=== PATIENT | male | born 1980 | race Caucasian/White ===

== ENCOUNTER → 2020-03-05 | Outpatient (CLI) | payer BC ==
--- NOTE | 2020-03-07 19:07 | CT ---
EXAMINATION TYPE: CT abdomen pelvis w con DATE OF EXAM: 03/05/2020 COMPARISON: NONE HISTORY: 39-year-old male Perineal fistula and scrotal abscess. TECHNIQUE: Contiguous axial scanning of the abdomen and pelvis following administration of 100 ml Iso nima 300 IV contrast. Delayed images through the kidneys and coronal/sagittal reconstructions perform ed. CT DLP: 1195 mGycm Automated exposure control for dose reduction was used. FINDINGS: Heart normal size without pericardial effusion. Breathing motion artifact of the lung bases. Liver enlarged at 19.8 cm. Nonspecific 1.0 cm hypodensity inferior right liver lobe. No additional fo nette liver lesion. Portal venous system is patent. No biliary ductal dilatation. Gallbladder, adrenal glands, kidneys, spleen, pancreas appear within normal limits. Scattered prominent mesenteric lymph nodes measuring up to 5 mm. No dilated small bowel, free fluid, free air. Scattered mild stool. No pericolonic inflammatory change. Prominent distention of the urinary bladder. Prostate gland is widened. No pelvic lymphadenopathy. Le ft-sided pelvic phleboliths. There is some focal soft tissue nodularity along the posterior inferior aspect of the right hemiscrot um measuring 2.3 x 1.2 cm in suggesting of small bilateral hydroceles. No obvious abnormal fluid safia ection is identified in the pelvis. Bones: Degenerative changes right SI joint. No osseous destructive process IMPRESSION: 1. 2.3 X 1.2 CM AREA OF SOFT TISSUE NODULARITY ALONG THE POSTERIOR INFERIOR RIGHT HEMISCROTUM. CORREL ATE WITH PHYSICAL EXAM FINDINGS. FOCAL PHLEGMON IS IN THE DIFFERENTIAL IF THERE ARE INFECTIOUS SIGNS/ SYMPTOMS HERE. CONSIDER TARGETED ULTRASOUND. 2. NONSPECIFIC 1 CM HYPODENSE LESION INFERIOR RIGHT LIVER LOBE. SIX-MONTH FOLLOW-UP ULTRASOUND RECOMM ENDED TO REASSESS THIS AREA AND EXCLUDE ANY ENLARGING LESION.
== END | disposition home or self-care (01) ==
LOC: RADCTMAIN 14:42
PROVIDERS: ATTEND Surgery
DX: K76.89 Other specified diseases of liver (principal); M79.89 Other specified soft tissue disorders; N45.4 Abscess of epididymis or testis
CPT/HCPCS: 74177; Q9967

== ENCOUNTER → 2021-07-06 | Outpatient (CLI) | payer BC ==
[2021-07-06 21:00] LABS: Gliadin AB IgA, Deaminated NEGATIVE (NEGATIVE); Gliadin AB IgA, Unit <0.2 U/mL; Gliadin AB IgG, Deaminated NEGATIVE (NEGATIVE)
== END | disposition home or self-care (01) ==
LOC: LABWHC1 08:51
PROVIDERS: ATTEND Colon & Rectal Surgery
DX: K86.81 Exocrine pancreatic insufficiency (principal); R19.7 Diarrhea, unspecified
CPT/HCPCS: 36415; 82656; 83516; 83630; 84443; 87045; 87046; 87328; 87329

== ENCOUNTER → 2024-01-03 | Outpatient (CLI) | payer BC ==
[2024-01-03 15:38] LABS: Basophils # (A) 0.06 X 10*3/uL (0.00-0.10); Basophils % (A) 0.9 %; Eosinophils # (A) 0.23 X 10*3/uL (0.04-0.35); Eosinophils % (A) 3.5 %; HCT 45.8 % (39.6-50.0); HGB 15.3 g/dL (13.0-17.0); Lymphocytes # (A) 2.25 X 10*3/uL (0.90-5.00); Lymphocytes % (A) 34.2 %; MCH 30.3 pg (27.0-32.0); MCHC 33.4 g/dL (32.0-37.0); MCV 90.7 FL (80.0-97.0); Monocytes # (A) 0.71 X 10*3/uL (0.20-1.00); Monocytes % (A) 10.8 %; NRBC Per 100 WBC 0 X 10*3/uL (0.00-0.01); Neutrophils % (A) 50.3 %; Platelet Count 219 X 10*3/uL (140-440); RBC 5.05 X 10*6/uL (4.40-5.60); RDW 12.5 % (11.5-14.5); WBC 6.57 X 10*3/uL (4.50-10.00)
[2024-01-03 16:21] LABS: % Iron Saturation 41.76 (15.00-50.00); C Reactive Protein <0.30 mg/dL (0.00-0.80); Iron 142 UG/DL (65-175); Total Iron Binding Capacity 340 UG/DL (228-460)
[2024-01-03 16:26] LABS: Hepatitis B Core IgM Nonreactive (Nonreactive); Hepatitis B Surface Antigen Nonreactive (Nonreactive)
[2024-01-03 16:57] LABS: Erythrocyte Sedimentation Rate 11 mm/Hr (0-15)
== END | disposition home or self-care (01) ==
LOC: LABWHC1 09:10
PROVIDERS: ATTEND Internal Medicine
DX: K60.3 Anal fistula (principal); K52.9 Noninfective gastroenteritis and colitis, unspecified; F41.9 Anxiety disorder, unspecified
CPT/HCPCS: 36415; 82728; 83540; 83550; 83993; 85025; 85652; 86140; 86480; 86705; 87340